=== PATIENT | male | born 1950 | race Caucasian/White ===

== ENCOUNTER 2020-06-17 14:26 | Emergency (ER) | payer MEDICARE, OTHER ==
[~2020-06-17] VITALS: Ht 195.6 cm; Wt 113.4 kg
--- OUTSIDE RECORDS SUMMARY | 2020-06-17 14:28 | XMS ---
PreManage Notification: FAITH GOYAL [employer] Inspector Events No recent Security Events currently on file CRITERIA MET - [facility] - [facility] - 2 Visits in 30 Days CARE PROVIDERS Tatiana Persaud Volunteer Services Assistant/Field Interviewer 03/09/2020-Current PHONE: [phone] KAYLEEN Internal Medicine [facility] PHONE: [phone] Nina has no Care Guidelines for this patient. E.DLuna VISIT COUNT (12 MO.) [address] [place] [address] [facility] TOTAL 7 NOTE: Visits indicate total known visits. ED/UCC VISIT TRACKING (12 MO.) 06/17/2020 14:26 [facility] [place] TYPE: Emergency COMPLAINT: - ABD PAIN, FEVER, HEADACHE 06/16/2020 07:54 [facility] [place] TYPE: Emergency COMPLAINT: - SICK 06/01/2020 16:00 [facility] [place] TYPE: Emergency COMPLAINT: - ABDOMINAL PAIN N/V DIAGNOSES: - Parkinson's disease - Retention of urine, unspecified - Retention of urine, unspecified - Lower abdominal pain, unspecified - Nausea with vomiting, unspecified - Lower abdominal pain, unspecified - Parkinson's disease - Nausea with vomiting, unspecified - Diarrhea, unspecified - Diarrhea, unspecified 12/13/2019 15:03 [facility] [place] TYPE: Emergency COMPLAINT: - ABD PAIN DIAGNOSES: - Constipation, unspecified - Unspecified abdominal pain 10/22/2019 13:15 [facility] [place] TYPE: Emergency COMPLAINT: - STOMACH PAIN DIAGNOSES: - Nausea - Unspecified abdominal pain - Fecal impaction - Parkinson's disease - Constipation, unspecified - Nausea - Unspecified abdominal pain 08/27/2019 10:03 [facility] [place] TYPE: Emergency DIAGNOSES: - Weakness - Parkinson's disease 08/03/2019 07:55 [facility] TYPE: Emergency DIAGNOSES: 0. EMS PAIN HIGH BP INPATIENT VISIT TRACKING (12 MO.) 07/11/2019 11:35 [facility] TYPE: Orthopedic DIAGNOSES: 0. 13765 LEFT OPEN QUAD TENDON REPAIR [email or web address]
[2020-06-17] MEDS ORDERED: CEPHALEXIN500 MG PO (14:36)
[2020-06-17] MEDS ORDERED: RYTARY ER 48.71 EACH PO (14:37)
[2020-06-17] MEDS ORDERED: HYDROMORPHONE HC2 MG PO (14:37)
[2020-06-17] MEDS ORDERED: HYDROCHLOROTH12.5 M1 PO (14:37)
== END 2020-06-17 16:59 | disposition home or self-care (01) ==
LOC: ED 14:26
DX: R82.81 Pyuria (principal)
CPT/HCPCS: 80053; 81001; 83605; 85025; 99283